=== PATIENT | female | born 1975 | race Caucasian/White ===

== ENCOUNTER 2020-09-08 11:36 | Emergency (ER) | payer BC, SELFPAY ==
[2020-09-08 11:40] VITALS: BP 143/87; PULSE 78; RESP 20; TEMP 37; O2SAT 100
--- NOTE | 2020-09-08 11:52 | ED.SKABFB ---
HPI - Skin/Abscess/Foreign Bdy General Chief complaint: Wound/Laceration Stated complaint: lac above right eye Time Seen by Provider: 09/08/20 11:52 Source: patient Mode of arrival: ambulatory Limitations: no limitations History of Present Illness HPI narrative: Kellie Graves is a 44 yo female with no PMH who comes to express care with a small superficial horizontal laceration above her right eyelid that occurred POA. She was removing a bone from her upper shoulders and the bolt was sitting and came down and hit her in the eye. She is out of date for tetanus Related Data Home Medications Medication Instructions Recorded Confirmed No Home Medications 09/08/20 09/08/20 Allergies Allergy/AdvReac Type Severity Reaction Status Date / Time No Known Allergies Allergy Verified 09/08/20 11:57 Review of Systems Review of Systems: Narrative: CONSTITUTIONAL: Denies fever, chills, sweats. EYES: Denies visual changes, redness, discharge. ENT: Denies rhinorrhea, congestion, sore throat, otalgia. CARDIOVASCULAR: Denies chest pain, palpitations, edema. RESPIRATORY: Denies dyspnea, wheezing, cough GASTROINTESTINAL: Denies abdominal pain, nausea, vomiting, diarrhea. GENITOURINARY: Denies dysuria, hematuria, abnormal discharge SKIN: Denies rash or itching. Small laceration above right eye patient tried to put glue on lec and is still oozing NEUROLOGIC: Denies numbness, or focal weakness. PSYCHIATRIC: Denies anxiety or depression. PMFSH Past Medical History Medical History No acute medical problems Family History Family History Other No acute medical problems Social History Social History Smoking status: Never smoker Alcohol intake: never Comments At time of signature, I agree with nursing past medical, surgical, social and family history. There is no relevant family history pertinent to the presenting complaint. Patient's blood pressure is elevated recommend follow-up with PCP Exam Narrative: Exam Narrative: GENERAL: This is a well-nourished, well-developed patient, in mild distress. HEAD: normocephalic, atraumatic. EYESSclera clear/white. Vision is grossly intact. EARS: External ears normal, . Hearing grossly intact. NOSE: External nose normal without nasal discharge, nares without redness, no rhinorrhea. THROAT: Mucous membranes moist, NECK: Neck supple, CARDIOVASCULAR: Regular rate and rhythm without murmurs, gallops, or rubs. RESPIRATORY: Clear to auscultation. Breath sounds equal bilaterally. No wheezes, rales, or rhonchi. GASTROINTESTINAL: Abdomen soft, non-tender, SKIN: warm, intact with no suspicious lesions or rash, good texture and turgor. Small horizontal laceration above right eye NEURO: awake, alert, and oriented to person, place and time. There were no obvious focal neurologic abnormalities. Steady gait EXTREMITIES: Normal range of motion. BACK: Nontender without deformity Course Course Emergency Course: Small lacerations right eye Repair with Steri-Strips and glue; given tetanus shot Follow-up with PCP for blood pressure Vital Signs Vital signs: Vital Signs Temperature 98.6 F 09/08/20 11:40 Pulse Rate 78 09/08/20 11:40 Respiratory Rate 20 09/08/20 11:40 Blood Pressure 143/87 H 09/08/20 11:40 Pulse Oximetry 100 09/08/20 11:40 Temperature 98.6 F 09/08/20 11:40 Pulse Rate 78 09/08/20 11:40 Respiratory Rate 20 09/08/20 11:40 Blood Pressure 143/87 H 09/08/20 11:40 Pulse Oximetry 100 09/08/20 11:40 Procedures Laceration Laceration 1: Date: 09/08/20 Time: 12:06 Site: face Side (If applicable): right Size (cm): 1.25 Description: linear Depth: simple, single layer Pre-repair: irrigated ====== Skin Level ====== Skin la
[2020-09-08] MEDS: TETANUS,DIPHTHERIA,AC PERTUSSIS ADULT (0.5 ML) BOOSTRIX IM (12:12)
== END 2020-09-08 12:38 | disposition home or self-care (01) ==
PROVIDERS: Emergency Provider Nurse Practitioner
DX: S01.81XA Laceration without foreign body of other part of head, initial encounter (principal); W20.8XXA Other cause of strike by thrown, projected or falling object, initial encounter; Z23 Encounter for immunization
CPT/HCPCS: 12011; 90471; 90715; 99202; G0463